=== PATIENT | female | born 1955 ===

== ENCOUNTER 2024-07-24 07:31 | Day surgery (SDC) | payer OTHER ==
[~2024-07-24 07:31] MED LIST: ATACAND16 MG PO; DEXILANT60 MG PO; EMGALITY S120 MG/1 M; HORIZANT300 MG PO; KENALOG-1010 MG/1 ML IJ; LEVOTHYROXINE25 MCG PO; ORAPRED ODT10 MG PO; PROAIR RESPICL90 MCG IH; ROSUVASTATIN CA10 MG PO; SINGULAIR10 MG PO; SPIRIVA RESPIMAT4 G1 IH; UBRELVY100 MG PO; ZYRTEC10 M3 PO
[2024-07-24] MEDS ORDERED: ERTAPENEM SODIUM 1,000 MG VIAL IV ONE (09:15)
[2024-07-24] MEDS ORDERED: BUPIVACAINE LIPOSOME/PF 266 MG/20 ML VIAL IJ ONE (09:15)
[2024-07-24] MEDS ORDERED: HEMOSTATIC MATRIX 1 KIT KIT TOP ONE (09:15)
[2024-07-24] MEDS ORDERED: BUPIVACAINE HCL 30 ML VIAL IJ ONE (09:15)
[2024-07-24] MEDS ORDERED: POVIDONE-IODINE 118 ML BOTT TOP ONE (09:15)
[2024-07-24] MEDS ORDERED: LIDOCAINE HCL 1%/EPINEPHRINE 20ML VIAL IJ ONE (09:15)
[2024-07-24] MEDS ORDERED: NEURONTIN300 MG PO (11:04)
[2024-07-24] MEDS ORDERED: INTESTINEX680 M1 PO (11:04)
[2024-07-24] MEDS ORDERED: PERCOCET 5-3251 EACH PO (11:04)
== END 2024-07-24 14:35 | disposition home or self-care (01) ==
LOC: CIR.AMB 07:31
PROVIDERS: ATTEND Surgery
DX: K60.1 Chronic anal fissure (principal); Z88.6 Allergy status to analgesic agent; Z88.1 Allergy status to other antibiotic agents; Z88.0 Allergy status to penicillin; K62.5 Hemorrhage of anus and rectum; K64.2 Third degree hemorrhoids; J45.909 Unspecified asthma, uncomplicated; I10 Essential (primary) hypertension; F41.9 Anxiety disorder, unspecified; F41.8 Other specified anxiety disorders